=== PATIENT | male | born 1990 | race Two or more races ===

== ENCOUNTER 2023-03-06 17:49 | Emergency (ER) | payer OTHER, SELFPAY ==
--- NOTE | 2023-03-06 17:50 | ED.GENADULT ---
HPI - General Adult General Chief complaint: Wound/Laceration Stated complaint: sherice open on head/ bleeding alot Related Data Allergies Allergy/AdvReac Type Severity Reaction Status Date / Time No Known Allergies Allergy Unverified 04/24/20 19:09 [facility] Social History Social History Alcohol intake: never Smoked in Last 30 Days: Yes Use of substances other than those prescribed or required for medical reasons: No Advance Directives: No Advance Directives Information Provided: Yes Physical Exam ED Vital Signs: BMI result Body Mass Index 22.7 Course Course Course Narrative: This is a rapid medical exam. Deferred additional HPI, ROS, PE to primary provider. 32 yo male with no known medical history here with bleeding from staple site. Patient had sherice placed in head 2 weeks ago at [facility] after falling from a second story. Removed hit hat today and ripped one of the sherice causing the site to bleed. After removal in triage there was a small vessel noted to be bleeding. Pressure dressing placed. Will need re-assessment and ?further sherice to be placed. VSS Discharge Plan Discharge Clinical Impression: Laceration Patient Disposition: Elopement Discharge Date/Time: 03/06/23 20:19
[2023-03-06 17:51] VITALS: BP 140/87; PULSE 120; RESP 18; TEMP 36.2; O2SAT 97; BMI 22.7
--- NOTE | 2023-03-06 20:15 | PC.NURSE ---
laceration site was clensed with NS and hydrogen peroxide, no active bleeding at this time
--- NOTE | 2023-03-06 20:18 | PC.NURSE ---
pt stated he could no longer wait to be seen, apologized to pt as they have waited 1hour and 45min hours in exam room - pt left exam room with
== END 2023-03-06 20:19 | disposition left against medical advice (07) ==
PROVIDERS: Emergency Provider Emergency Medicine
DX: S01.01XA Laceration without foreign body of scalp, initial encounter (principal); X58.XXXA Exposure to other specified factors, initial encounter; Y93.9 Activity, unspecified; Y92.9 Unspecified place or not applicable; Y99.9 Unspecified external cause status
CPT/HCPCS: 99284

== ENCOUNTER 2023-03-19 01:21 | Emergency (ER) | payer OTHER, SELFPAY ==
[2023-03-19 01:42] VITALS: BP 117/77; PULSE 70; RESP 20; TEMP 36.3; O2SAT 98; BMI 23.7
== END 2023-03-19 03:57 | disposition left against medical advice (07) ==
PROVIDERS: Emergency Provider Emergency Medicine
DX: Z48.02 Encounter for removal of sutures (principal)
CPT/HCPCS: 99281